=== PATIENT | male | born 1970 | race Caucasian/White ===

== ENCOUNTER 2018-12-08 05:15 | Emergency (ER) | payer BC, SELFPAY ==
[2018-12-08 05:16] VITALS: BP 128/89; PULSE 98; RESP 16; TEMP 36.4; O2SAT 97; BMI 22.0
--- NOTE | 2018-12-08 05:37 | RAD_ITS ---
STUDY: X-RAY - LEFT WRIST REASON FOR EXAM: Male, 47 years old. Left wrist injury yesterday. TECHNIQUE: 3 view(s) of the wrist were obtained. COMPARISON: None. FINDINGS: Faint vertical line involving the distal radius with intra-articular extension on the AP and lateral view measuring approximately 2 cm in length with otherwise normal visualized distal radius and ulna. Normal radiocarpal articulation. Normal distal radioulnar articulation. Normal carpal bones. Normal carpal articulations. Normal carpometacarpal articulation of the thumb. Normal second through fifth carpometacarpal articulations. Normal visualized metacarpal bones. Mild dorsal carpal soft tissue swelling.. RAD/Wrist min 3 Views IMPRESSION: Nondisplaced fracture of the distal radius with vertical extension into the articular surface. Electronically Signed: Santa Pang MD at 6:04 EDT , Service support ,
--- NOTE | 2018-12-08 06:29 | ED.DCSUM_ITS ---
- ER Visit Summary Date of Service: 12/08/18 Chief Complaint: Left wrist injury History of Present Illness: The patient is a 47 M who presents with left wrist injury. This occurred about 12 hours ago. He fell onto an outstretched hand. He is concerned that he dislocated his wrist. He denies paresthesias weakness loss of function. No other injuries. Pain is only mild. Physical Examination: Afebrile vitals normal Patient does have some soft tissue swelling over the left wrist as well as some diffuse tenderness no bony deformity brisk capillary refill normal sensation to light touch in the radial median and ulnar nerve distributions no pain at the elbow or hand Test Results: Wrist x-ray shows a nondisplaced vertical distal radius fracture extending into the joint. Emergency Department Course and Treatment: Patient was placed into an AP Ortho- Glass splint. This was well tolerated without any immediate complication. Patient declined any analgesics. He was advised on supportive care including rest ice elevation. He was referred to orthopedics. Treatment Plan: [] Disposition: Discharge Impression: Distal radius fracture This note was generated with [employer] dictation software. It may contain incorrect words, spelling, and punctuation that were not noted in review of the chart prior to signing ED Disposition - Plan for ED Patient: Referrals: Rob Murphy MD [Primary Care Provider] -
--- NOTE | 2018-12-08 06:29 | ED.DEP ---
ED Disposition - Plan for ED Patient: Instructions: ED Fx Wrist General Referrals: Rob Murphy MD [Primary Care Provider] - Uriel Saba DO [STAFF PHYSICIAN] -
[2018-12-08 06:37] VITALS: RESP 14
== END 2018-12-08 06:39 | disposition home or self-care (01) ==
LOC: ED 05:41
PROVIDERS: Emergency Provider Emergency Medicine; Family Provider Family Medicine; PCP Family Medicine
DX: S52.572A Other intraarticular fracture of lower end of left radius, initial encounter for closed fracture (principal); W19.XXXA Unspecified fall, initial encounter; Y93.9 Activity, unspecified; Y92.9 Unspecified place or not applicable
CPT/HCPCS: 29125; 73110; 99282

== ENCOUNTER 2020-08-03 07:31 | Emergency (ER) | payer OTHER, SELFPAY ==
[2020-08-03 07:31] VITALS: BP 135/94; PULSE 87; RESP 16; TEMP 36.2; O2SAT 99; BMI 23.4
--- NOTE | 2020-08-03 07:44 | RAD_ITS ---
STUDY: X-RAY - LEFT TIBIA AND FIBULA REASON FOR EXAM: Laceration of the mid leg yesterday. TECHNIQUE: 2 view(s) of the tibia and fibula were obtained. COMPARISON: None. FINDINGS: Normal visualized tibia. Normal visualized fibula. There is a soft tissue defect of the anterior lateral mid leg without radiopaque foreign body. RAD/Tibia & Fibula 2 Views IMPRESSION: Soft tissue defect of mid leg. Electronically Signed: Reid Hoyos MD at 8:23 EST Tel , Service support ,
--- NOTE | 2020-08-03 07:51 | ED.DCSUM_ITS ---
History of Present Illness Chief Complaint: Laceration Informant: Patient Onset: Yesterday Context: Sudden Onset Timing: Continuous Current Severity: Moderate Maximum Severity: Moderate Narrative: Patient is a 49-year-old male was otherwise healthy but does admit to alcohol use who presents to the emergency department laceration to his left lower extremity. Patient states that he was moving a window. The window fell and broke. He incised his leg. This happened last night. He thinks it was around 10 or 11. He states he placed a dressing. Today, when he woke, it was bleeding and he thought that he may have need stitches. He states his tetanus was 5 years ago. He is on no other daily medications. He is still able to bear weight. He is otherwise been in his normal state of health. Prior similar symptoms: No Recent Illness/Hospitalization: No Past Medical History - Allergies and Home Meds Allergies/Adverse Reactions: Allergies No Known Allergies Allergy (Verified 08/03/20 07:31) Primary Care Physician: Uriel Saba DO [STAFF PHYSICIAN] - 3-5 Days Prior records reviewed: Yes Past Medical History: None Surgical History: noncontributory Smoking Status: Never smoker Review of Systems General: Denies: Chills, Fever, Sweats Eyes: Denies: Visual changes - bilaterally, Diplopia ENT: Denies: Rhinorrhea, Sore throat Cardiovascular: Denies: Chest pain, Palpitations Respiratory: Denies: Dyspnea, Cough, Dyspnea on exertion Gastrointestinal: Denies: Abdominal pain, Nausea, Vomiting, Diarrhea, Melena, Hematochezia Genitourinary: Denies: Dysuria, Hematuria, Frequency Musculoskeletal: Denies: Back pain, Extremity Pain Skin: Denies: Rash, Wounds Neurological: Denies: Headache, Weakness, Numbness Physical Exam Vital Signs/Narrative: Vital Signs Temp Pulse Resp BP Pulse Ox 08/03/20 07:31 97.2 F L 87 16 135/94 H 99 Inital Vital Signs reviewed: Yes General: Well nourished, Well developed, No Acute Distress Head: Normocephalic, Atraumatic Eyes: Perrl, EOMI ENT: Moist mucous membranes, No rhinorrhea Neck: Supple, Nontender Cardiovascular: Regular rate, Regular rhythm, No murmurs Respiratory: No distress, CTA bilaterally, Chest nontender Abdomen: Soft, Nontender, Nondistended, Normal bowel sounds Back: Nontender, Normal Inspection Extremities: No edema, Tenderness - Patient has 9 inch laceration over the proximal lateral aspect of the left lower extremity near the fibula. It does appear to transverse muscle belly. I also concerned that he did incise a peroneal tendon. His sensation is preserved. His pulses are normal. He is able to flex and extend all thro Neurological: Alert, Oriented x3, Cranial nerves II-XII grossly intact, Normal Strength, Normal Sensation Psychological: Normal affect, Normal Mood Diagnostic/Tx/Re-eval Clinical Impression(s) from Imaging Studies Tibia/Fibula X-Ray 08/03/20 07:44 IMPRESSION: Soft tissue defect of mid leg. Electronically Signed: Reid Hoyos MD at 8:23 EST Tel , Service support , - Medical Decision Making Patient presents with laceration. It is through the fascia and muscle belly. It also appears if he has a peroneal tendon injury. I did discuss his case with Dr. Matias Vargas prior to any intervention. He did state to irrigate it and just close the skin and he would see him in follow-up. The patient was ordered Ancef but he refused. He states I do not like needles. I did scholarship counselor him that this would likely prevent any infection. He still did not want it. The patient will be placed on Keflex. Plain films were obtained. They were reviewed by myself and the radiologist. There is no evidence of radiopaque foreign body. The wound was anesthetized with 6 cc of bupivacaine. It was copiously irrigated and cleaned. It was closed with 14 simple interrupted 4-0 suture. I also placed 1 vertical mattress at the midline where there was most gapping. Bacitracin dressing was applied. The patient will follow up in 3 to 5 days for wound reevaluation with orthopedics return with any worsening symptoms. Impression 1. 9 inch left lower extremity laceration with muscle injury 2. Laceration repair ED Disposition - Plan for ED Patient: Instructions: ED Laceration: All Closures Prescriptions: Cephalexin [Keflex] 500 mg PO Q6 #40 cap Prescription Printed Referrals: Uriel Saba DO [STAFF PHYSICIAN] - 3-5 Days
[2020-08-03] MEDS: Bupivacaine Mpf 0.5% 30 ML VIAL INFILT (09:11)
[2020-08-03 09:13] VITALS: PULSE 72; O2SAT 99
== END 2020-08-03 09:14 | disposition home or self-care (01) ==
PROVIDERS: Emergency Provider Emergency Medicine; PCP Family Medicine
DX: S81.812A Laceration without foreign body, left lower leg, initial encounter (principal); S86.302A Unspecified injury of muscle(s) and tendon(s) of peroneal muscle group at lower leg level, left leg, initial encounter; W25.XXXA Contact with sharp glass, initial encounter; Y93.89 Activity, other specified; Y92.9 Unspecified place or not applicable; Y99.9 Unspecified external cause status
CPT/HCPCS: 12004; 73590; 99283

== ENCOUNTER → 2022-02-06 | Outpatient (CLI) | payer OTHER, SELFPAY ==
--- NOTE | 2022-02-06 09:55 | RAD_ITS ---
STUDY: X-RAY - LUMBAR SPINE REASON FOR EXAM: Male, 51 years old. ACUTE LOW BACK PAIN TECHNIQUE: 2 view(s) of the lumbar spine were obtained. COMPARISON: None FINDINGS: Normal lumbar lordosis. There is no substantial scoliosis. There is a normal alignment of the vertebrae. Mild degree of anterior spondylosis and disc space narrowing at the L4-L5 and L5-S1 levels. The soft tissue structures are unremarkable. RAD/Lumbar Spine 2 or 3 Views IMPRESSION: Degenerative changes of the spine, as detailed above. Electronically Signed: Faisal Edouard MD at 10:53 EDT ,
== END | disposition home or self-care (01) ==
LOC: RAD 09:53
PROVIDERS: PCP Family Medicine; Referring Provider Family Medicine; Visit Provider Family Medicine
DX: M47.816 Spondylosis without myelopathy or radiculopathy, lumbar region (principal); M48.061 Spinal stenosis, lumbar region without neurogenic claudication
CPT/HCPCS: 72100

== ENCOUNTER → 2023-07-01 | Outpatient (CLI) | payer OTHER, SELFPAY ==
--- NOTE | 2023-07-01 08:35 | RAD_ITS ---
EXAM: XR LEFT KNEE, 3 VIEWS CLINICAL INDICATION: PAIN LEFT KNEE TECHNIQUE: Three views of the left knee. COMPARISON: No relevant prior studies available. FINDINGS: BONES/JOINTS: Unremarkable. No acute fracture. No subluxation. Normal alignment. Preservation of the joint space. No sclerotic or destructive changes observed. SOFT TISSUES: Unremarkable. No soft tissue swelling or gas. No radiopaque foreign body. RAD/Knee 3 Views IMPRESSION: Negative left knee x-rays. Electronically Signed: Attila Luu MD at 22:39 EST ,
== END | disposition home or self-care (01) ==
PROVIDERS: PCP Family Medicine; Referring Provider Nurse Practitioner Family; Visit Provider Nurse Practitioner Family
DX: M25.562 Pain in left knee (principal)
CPT/HCPCS: 73562

== ENCOUNTER → 2023-10-19 | Outpatient (CLI) | payer OTHER, SELFPAY ==
--- NOTE | 2023-10-19 16:50 | RAD_ITS ---
STUDY: X-RAY - RIGHT ANKLE REASON FOR EXAM: Male, 52 years old. injury TECHNIQUE: 3 view(s) of the ankle. COMPARISON: None. FINDINGS: Normal visualized distal tibia and fibula. Normal medial and lateral malleoli. Normal tibiotalar articulation and ankle mortise. Normal visualized talus and calcaneus. The visualized subtalar, talonavicular, calcaneocuboid and tarsal articulations are normal. Mild bimalleolar soft tissue swelling.. RAD/Ankle min 3 Views IMPRESSION: Mild bimalleolar sprain. No acute fracture or dislocation. Electronically Signed: Frederick Guillen MD at 18:51 EST ,
--- NOTE | 2023-10-19 16:50 | RAD_ITS ---
STUDY: X-RAY - RIGHT FOOT CLINICAL: Male, 52 years old. injury TECHNIQUE: 3 view(s) of the foot. COMPARISON: None. FINDINGS: Normal talus, calcaneus, and tarsal bones. Normal visualized subtalar, talonavicular, calcaneocuboid, tarsal and tarsometatarsal articulations. Normal metatarsi. Narrowed metatarsophalangeal joint of the great toe subchondral sclerosis and osteophytic spurring. Normal tibial and fibular sesamoid bones. Normal interphalangeal joint of the great toe. Normal phalanges of the great toe. Normal second through fifth metatarsophalangeal joints. Normal interphalangeal joints and phalanges of the lesser toes. The soft tissue structures are unremarkable. RAD/Foot min 3 Views IMPRESSION: Degenerative changes of the first metatarsal phalangeal joint. No acute fracture or dislocation. Electronically Signed: Frederick Guillen MD at 17:20 EST ,
== END | disposition home or self-care (01) ==
PROVIDERS: PCP Family Medicine; Referring Provider Physician Assistant; Visit Provider Physician Assistant
DX: S93.491A Sprain of other ligament of right ankle, initial encounter (principal); M19.071 Primary osteoarthritis, right ankle and foot; X58.XXXA Exposure to other specified factors, initial encounter
CPT/HCPCS: 73610; 73630

== ENCOUNTER → 2025-02-15 | Outpatient (CLI) | payer OTHER, SELFPAY ==
--- NOTE | 2025-02-15 10:05 | RAD_ITS ---
PROCEDURE: SHOULDER MIN 2 VIEWS 02/15/2025 REASON FOR EXAM: PAIN TECHNIQUE: SHOULDER MIN 2 VIEWS COMPARISON: None RAD/Shoulder min 2 Views IMPRESSION: Cortical deformity of the greater tuberosity of the right humerus may reflect n ondisplaced fracture or chronic deformity. No dislocations. No significant degenerative changes. No acute soft tissue abnormalities. No radiographic foreign body. Reading Location: [facility]
--- OUTSIDE RECORDS SUMMARY | 2025-02-15 20:33 | XMS RPT_ITS | CCD ---
Author Organization [facility] Inform ion Partnership [facility] Care Team Providers Care Binder Folder Operator Name Role Phone Maurice GROUP THERAPY COUNSELOR, Eliza Referring Unavailable Maurice JUAREZ, Eliza Attending Unavailable Rob Murphy Primary Care Unavailable Dr. Rob Murphy Primary Care Provider Dr. Rob Murphy Referring Provider [phone] SANDOVAL Salazar Attending Provider Medications Current Medications Medication Drug Class(es) Dates Sig (Normalized) Sig (Original) cephalexin 500 mg oral capsule (2 sources) Cephalosporin Antibacterial Start: 08-03-2020 take 500 mg by mouth every six hours Cephalexin Active 500 MG PO EVERY 6 HOURS August 03, 2020 12:00am predniSONE 10 mg oral tablet (1 source) Start: 10-19-2023 take 4 tablets by mouth once daily, then take 3 tablets by mouth once daily, then take 2 tablets by mouth once daily, then take 1 tablet by mouth once daily Prednisone Active 10 MG PO DAILY October 19, 2023 12:00am 4 tablets daily x3 days, then 3 tablets daily x3 days, then 2 tablets daily x3 days, then 1 tablet daily x3 days Problems Problem Classification Problem Date Documented Da te Episodic/Chronic Gout and other crystal arthropathies (2 sources) Gout; Translations: [Gout, unspecified] 10-19-2023 Chronic Other non-traumatic joint disorders (1 source) Pain in left knee; Translations: [Pain in left knee] Onset: 07-07-2023 Episodic Sprains and strains (4 sources) Sprain of right ankle; Translations: [Sprain of unspecified ligament of right ankle, initial encounter] 10-19-2023 Episodic Results Test Name Value Interpretation Reference Range Facil ity Knee 3 Viewson 07-01-2023 Knee 3 Views [facility] [address] [place] [address] Knee 3 Views MR#: [id number] Acct: [id number] Name: NAOMI ROSSI Rep #: [id number] : 1970 M 52 From: Attila Luu MD PCP: Dr. Rob Murphy MD Status: REG CLI Study: Knee 3 Views Date of Exam: 07/01/23 Exam# [id number] Ordering Dr: Eliza Richards NP GROUP THERAPY COUNSELOR-C [id number] EXAM: XR LEFT KNEE, 3 VIEWS CLINICAL INDICATION: PAIN LEFT KNEE TECHNIQUE: Three views of the left knee. COMPARISON: No relevant prior studies available. FINDINGS: BONES/JOINTS: Unremarkable. No acute fracture. No subluxation. Normal alignment. Preservation of the joint space. No sclerotic or destructive changes observed. SOFT TISSUES: Unremarkable. No soft tissue swelling or gas. No radiopaque foreign body. RAD/Knee 3 Views IMPRESSION: Negative left knee x-rays. Electronically Signed: Attila Luu MD at 22:39 EST , CC: IVETTE Richards; Dr. Rob Murphy MD [employer] Del[employer] Sales Manager: Signed Normal [facility] Vital Signs Date Time Vital Sign Value Performing Clinician Faci lity 10-19-2023 17:05-0500 Body height 182.[address] Rob Murphy Work Phone: [facility] 10-19-2023 17:05-0500 Body mass index (BMI) [Ratio] 23.8 kg/m2 Dr. Rob Murphy Work Phone: [facility] 10-19-2023 17:05-0500 Body temperature 98.5 [degF] Dr. Rob Murphy Work Phone: [facility] 10-19-2023 17:05-0500 Body weight 79.[address] Rob Murphy Work Phone: [facility] 10-19-2023 17:05-0500 Diastolic blood pressure 76 mm[Hg] Dr. Rob Murphy Work Phone: [facility] 10-19-2023 17:05-0500 Heart rate 111 /min Dr. Rob Murphy Work Phone: [facility] 10-19-2023 17:05-0500 Respiratory rate 12 /min Dr. Rob Murphy Work Phone: [facility] 10-19-2023 17:05-0500 SaO2% (BldA) [Mass fraction] 97 % Dr. Rob Murphy Work Phone: [facility] 10-19-2023 17:05-0500 Systolic blood pressure 124 mm[Hg] Dr. Rob Murphy Work Phone: [facility] Encounters Encounter Date Encounter Type Care Provider Facility Start: 10-19-2023 End: 10-19-[address] Rob Murphy Work Phone: [facility] Work Phone: Start: 10-19-2023 End: 10-19-[address] Rob Murphy Work Phone: [facility] Work Phone: Start: 07-01-2023 End: 07-01-2023 ambulatory Eliza Richards Facility:[facility] Start: 07-01-2023 End: 07-01-[address] Rob Murphy Work Phone: [facility] Work Phone: Start: 02-06-2022 End: 02-06-2022 Patient encounter procedure [facility] Procedures Date Procedure Procedure Detail Performing Clinician Start: 10-19-[address] Felicia Murphy Work Phone: Start: 10-19-2023 X-ray of both feet Dr. Rob Murphy Work Phone: Start: 07-01-2023 Radiologic examinati on of knee Dr. Rob Murphy Work Phone: Start: 02-06-2022 X-ray of lumbar spin e, two or three views Payers Date Payer Category Payer Private Health Insurance [id number] 2023 Self-pay [id number] Private Health Insurance [employer] [id number] Self-pay [id number] Unknown [id number] Unknown [facility] PACKAGE PLAN [id number] Unknown [id number] Social History Date Type Detail Facility Start: 08-03-2020 End: 10-19-2023 Tobacco smoking status MDIS Unknown if ever smoked [facility] Start: 1970 Sex Assigned At Male [facility] Evaluation note Note Date & Type Note Facility Evaluation note No assessment information availa ble [facility] Work Phone: Evaluation note Note Date & Type Note Facility Evaluation note Diagnosis Onset Date Gout acute Right ankle sprain acute Right foot sprain acute [facility] Work Phone: Advance Directives Advance Directive Response Recorded Date/ Time Living Will No August 03 8:40am Power of Soil Science Technical Officer No August 03, 2020 8:40am Advance Directive Response Recorded Date/ Time Living Will No Kameron 11th, 2 020 7:40am Power of Soil Science Technical Officer No August 03, 2020 7:40am Summary Purpose Family History No Family History Records Found Chief Complaint and Reason for Visit Chief Complaint RIGHT FOOT PAIN EORDER Reason for Visit Gout Right ankle sprain Right foot sprain Additional Source Comments Goals (unrecognized section and content) Goals may be documented in a n alternate sectionGoals may be documented in an alternate section (unrecognized sect ion and content) No Status Records Found INFORMATION SOURCE (unrecogn ized section and content) DATE CREATED AUTHOR 07/08/2023 [facility] Care Teams (unrecognized sec tion and content) Team Status: Active Member Role Status Dates Dr. Rob Murphy MD Family Provider Active Dr. Rob Murphy MD Primary Care Provider Active Team Status: Inactive Member Role Status Dates Dr. Rob Murphy MD Primary Care Provider, Referri ng Provider Active SANDOVAL Leger Attending Provider Active Team Status: Inactive Member Role Status Dates Dr. Rob Murphy MD Primary Care Provider Active Eliza Richards GROUP THERAPY COUNSELOR, GROUP THERAPY COUNSELOR-C Attending Provider, Referring Provi vinod Active Team Status: Inactive Member Role Status Dates Dr. Rob Murphy MD Primary Care Provider Active SANDOVAL Leger Attending Provider, Referring Pr ovider Active FOR RECORDS PERTAINING TO PATIENTS WHO ARE OR HAVE BEEN ENROLLED IN A CHEMICAL DEPENDENCY/SUBSTANCEABUSE PROGRAM, SOME INFORMATION MAY BE OMITTED. This clinical summary was aggregated from multiple sources. Caution should be exercised in using it in the provision of clinical care. This summary normalizes information from multiple sources, and as a consequence, information in this document may materially change the coding, format and clinical context of patient data. In addition, data may be omitted in some cases. CLINICAL DECISIONS SHOULD BE BASED ON THE PRIMARY CLINICAL RECORDS. [facility] [employer] [facility]. provides no warranty or guarantee of the accuracy or completeness of information in this document.
== END | disposition home or self-care (01) ==
DX: M25.511 Pain in right shoulder (principal)
CPT/HCPCS: 73030